=== PATIENT | male | born 1985 | race Caucasian/White ===

== ENCOUNTER 2024-06-22 07:09 | Day surgery (SDC) | payer BC, SELFPAY ==
[2024-06-22] VITALS (7 sets, daily range): BP systolic 107–127; BP diastolic 67–82
[2024-06-22] MEDS: CELEBREX 200 MG PO (07:30)
[2024-06-22] MEDS: TYLENOL 1000 MG PO (07:30)
[2024-06-22] MEDS: NORMOSOL-R/PLASMALYTE-A 1000 IV (07:33)
[2024-06-22] MEDS: ROXICODONE 5 MG PO (11:52)
== END 2024-06-22 12:10 | disposition home or self-care (01) ==
LOC: SDS 07:09
PROVIDERS: ATTENDING PHYSICIAN Orthopaedic Surgery
DX: S62.325A Displaced fracture of shaft of fourth metacarpal bone, left hand, initial encounter for closed fracture (principal); W19.XXXA Unspecified fall, initial encounter
CPT/HCPCS: 26615